=== PATIENT | female | born 1960 | race Caucasian/White ===

== ENCOUNTER 2025-03-20 02:25 | Day surgery (SDC) | payer OTHER, SELFPAY ==
[2025-03-13 14:43] VITALS: BMI 32.1
--- NOTE | 2025-03-13 14:51 | PC.NURSE ---
Report to the Outpatient Waiting Room, entrance under the green pavilion located off [facility], at time 1130_ on date _03/20/25_. Planned Procedure Time: __1330_.? Time changes happen often and if your time is changed the preop area will call you the afternoon before. - You and your visitor will be asked to self-screen and do not enter if you have any COVID symptoms. Please call surgeon if you need to reschedule. - A mask is optional within the hospital at this time. Patients may have clear liquids (water, carbonated beverages, clear teas, apple juice) until 3 hours prior to surgery with a maximum of 20 ounces. - No food from midnight until time of surgery and no smoking, or chewing tobacco (or any form of nicotine). No chewing gum, candy or mints. - Infants may have breast milk until 4 hours before surgery, infant formula 6 hours prior to surgery. - Children will be allowed to drink immediately following surgery.? If applicable, please bring a bottle or sippy cup to assist with drinking. Juice, water, soda, and popsicles are readily available.? For infants on formula, please bring formula the day of surgery.? Pacifiers are allowed. Take only the following medications with a SIP of water on the morning of surgery: ____LEVOTHYROXINE DO NOT STOP ANY OF YOUR OTHER PRESCRIPTION MEDICATIONS PRIOR TO SURGERY EXCEPT THE FOLLOWING Hold all vitamins and supplements for 3 days per anesthesiologist. Medications to discontinue per physician Date to take last dose Please no make-up, nail kyrgyz, hairspray, perfume, deodorant, or body powder the day of surgery.? No jewelry (including any body piercings) or valuables the day of surgery, leave them at home.? Please take a shower or bath the night before, or the morning of, surgery with an antibacterial soap.? Wear comfortable, loose fitting clothing.? Children are encouraged to wear pajamas. - Jewelry must be removed prior to entering the operating room.? Rings and piercings that are not removed may be cut off. - The hospital will not accept responsibility for valuables.? - Please leave all valuables, including medications, at home the day of surgery. If you are going home after surgery, a licensed sales route driver helper must drive you home.? - NO public transportation without another adult if you receive anesthesia. - We recommend that an adult stay with you for 24 hours following discharge. - We also recommend that you do not drive, make important decision, drink alcoholic beverages, or take any drugs that were not prescribed by your health care provider for at least 24 hours after your discharge time. For Pediatric surgeries, we recommend two adults accompany the child home. Follow any additional instructions given to you from your surgeon. Telephone instructions given to _PATIENT_and asked if any additional questions and then verbalized understanding. Patient advised to call surgeon office or pre surgery nurse liaison [phone] if any additional questions.
[2025-03-20] VITALS (8 sets, daily range): BP systolic 137–160; BP diastolic 62–70; PULSE 65–80; RESP 11–16; TEMP 36.6–36.8; O2SAT 93–100; BMI 31.7
--- OUTSIDE RECORDS SUMMARY | 2025-03-20 02:27 | XMS_ITS | Clinical Summary ---
Author Organization [facility] at the Medical Office Building Address [address] [place] [phone] Care Team Providers Care Chipper Name Role Phone Saba Chiu MD Primary Care Provider Allergies Active Allergy Reactions Criticality Noted Date Comments Penicillins Unknown 05/15/2013 Medications cetirizine (ZyrTEC) 10 mg tablet Take 1 tablet (10 mg total) by mouth daily Active multivitamin capsule Take 1 capsule by mouth daily Active levothyroxine (SYNTHROID) 125 mcg tabletIndications: Acquired hypothyroidism Take 1 tablet (125 mcg total) by mouth daily 90 tablet 4 08/02/20 24 Active nystatin cream Apply topically 2 (two) times a day 30 g 11 12/01/19 25 026 Active apixaban (ELIQUIS) 2.5 mg tablet Take 1 tablet (2.5 mg total) by mouth 2 (two) times a day 14 tablet 01/18/20 25 Active atorvastatin (LIPITOR) 20 mg tablet TAKE 1 TABLET BY MOUTH EVERY DAY 90 tablet 2 01/25/20 25 Active valACYclovir (VALTREX) 500 mg tablet Take 1 tablet (500 mg total) by mouth daily 90 tablet 3 02/23/20 25 Active valACYclovir (VALTREX) 500 mg tablet Take 1 tablet (500 mg total) by mouth daily 90 tablet 3 06/30/20 22 025 Discontin ued(Reord er) Active Problems Problem Noted Date Diagnosed Date KENDRA (obstructive sleep apnea) 09/18/2024 BMI 32.0-32.9,adult 09/18/2024 Snoring 09/18/2024 Overview (09/18/2024): Referral for sleep med Psychophysiological insomnia 09/18/2024 Family history of sleep apnea 09/18/2024 Nonsmoker 09/18/2024 Shortness of breath 09/18/2024 Class 1 obesity due to exces s calories with serious comorbidity and body mass index (BMI) of 32.0 to 32.9 in adult 07/02/2022 Assessment & Plan (07/02/2022 9:50 AM CDT): Try to cut back on calories. Most people should eat between 6534-4515 calories to lose weight. Decrease your carbohydrate intake to less than 130 grams per day if possible and increase protein to help with hunger. Increase activity to 30 min 4-5 days a week and add strength training 2 times weekly. Avoid fried fatty foods, butter, red meats, full fat dairy products, and sugary baked goods. Focus diet on lean protein, skinless chicken, seafood, nuts, dried beans, whole grains and non-starchy veggies. Reduce sodium intake, ideally 2000 mg or less per day. History of pulmonary embolism 12/24/2020 Recurrent herpes simplex 05/04/2018 Allergic rhinitis 05/15/2013 Hyperlipidemia 05/15/2013 Hypothyroidism 04/14/2013 Resolved Problems Problem Noted Date Diagnosed Date Resolved Date Special screening for malign ant neoplasms, colon 06/27/2021 07/02/2022 Overview (06/27/2021): Added automatically from request for surgery [id number] Encounters Date Type Department Care Team Description 01/17/2025 Telephone [facility] Primary Care [address] [place] [address] [place] [phone] Saba Chiu MD 01/09/2025 2:15 PM CDT Office Visit [facility] Pulmonology [address] [facility] [address] [place] [phone] Guevara Jensen MD KENDRA (obstructive sleep apnea) (Primary Dx); Psychophysiological insomnia; Family history of sleep apnea; Nonsmoker; Shortness of breath; BMI 32.0-32.9,adult from Last 3 Months Immunizations Immunization Administration Dates Next Due Influenza, Quadrivalent, Spl it, Preservative Free, Intramuscular 07/14/2017 Influenza, Unspecified 09/12/2024(Deferr ed: Patient Refused),07/12/2024(Deferred: Patient Refused),07/06/2022(Deferred: Patient Refused),07/06/2022(Deferred: Patient Refused),07/04/2021(Deferred: Patient Refused),07/15/2020,07/10/2019, 018 Pfizer SARS-CoV-2 Monovalent Vaccination (12+ Yrs) PURPLE 12/20/2020,11/28/2020 TD Preservative Free 03/07/1998 Tdap 03/13/2020 ZOSTER Recombinant 10/08/2021,05/13/2021 Surgical History Surgery Date Site/Laterality Comments ABLATION SECTION CORRECTION HAMMER TOE 10/04/2023 - 11/03/2023 Bilateral Medical History Medical History Date Comments Thyroid disease Hyperlipidemia Hx of colonoscopy Family History Medical History Relation Name Comments Drug abuse Brother Stroke Father Heart disease Mother Hypertension Mother Stroke Mother Stroke Sister 1 Stroke Sister 2 Stroke Sister 3 Stroke Sister 4 Relation Name Status Comments Brother Father Mother Sister 1 Alive Sister 2 Alive Sister 3 Alive Sister 4 Alive Social History Tobacco Use Types Packs/Day Years Used Date Smoking Tobacco: Never Tobacco Cessation:Counseling Given: Not Answered AUDIT-C Answer Date Recorded Q1: How often do you have a drink containing alc ohol? 2-4 times a month 12/15/2021 Q2: How many drinks containi ng alcohol do you have on a typical day when you are drinking? 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 Gender Identity Female 07/18/2021 10:59 AM CDT Sexual Orientation Not on file Obstetrics History Last Filed Vital Signs Vital Sign Reading Time Taken Comments Blood Pressure 142/80 01/09/2025 2:22 PM CDT Pulse 71 01/09/2025 2:22 PM CDT Temperature 36.6 C (97.8 F) 12/01/2024 10:20 AM IMPLANT POLISHER Respiratory Rate 18 01/09/2025 2:22 PM CDT Oxygen Saturation 97% 01/09/2025 2:22 PM CDT Inhaled Oxygen Concentration - - Weight 86.5 kg (190 lb 12.8 oz) 01/09/2025 2:22 PM CDT Height 162.6 cm (5' 4) 01/09/2025 2:22 PM CDT Body Mass Index 32.75 01/09/2025 2:22 PM CDT Plan of Treatment Health Maintenance Due Date Last Done Comments Fall Risk Assessment 1960 Hepatitis C Screening 1960 Osteoporosis Screening-Bone Density Scan 1960 Hepatitis B Screening 1978 Pneumococcal vaccine 65+ (1 of 1 - PCV) 2010 Covid-19 Vaccine (3 - 2023-2 5 season) 2024 12/20/2020, 11/28/2020 Breast Cancer Screening-Mammogram 03/17/2025 03/17/2024, 03/17/2024, 03/17/2024, Additional history exists Influenza Vaccine (Season Ended) 2025 07/15/2020, 07/10/2019, 07/20/2018, Additional history exists Well Visit 65+ 07/12/2025 07/12/2024, 11/2022, 06/30/2022, Additional history exists Depression Screening 12/01/2025 12/01/2024, 09/12/2024, 07/12/2024, Additional history exists Colon Cancer Screening-Colonoscopy 07/31/20262020, 09/19/2015 Cervical Cancer Screening 06/30/2027 06/30/2022, 11/2016 DTaP/Tdap/Td Vaccine (2 - Td or Tdap) 03/13/2030 03/13/2020, 03/07/1998 Zoster Vaccine Completed 10/08/2021, 05/13/2021 Procedures Procedure Name Priority Date/Time Associated Diagnosis Comments SCREENING MAMMOGRAM Schedule Routine, Read Routine (OP Routine) 03/17/2024 PAP AND HIGH RISK HPV, REFLEX TO GENOTYPING Routine 06/30/2022 11:37 AM CDT Cervical cancer screening HM COLONOSCOPY Routine 07/31/2021 from Last 3 Months or Most Recently Relevant to Health Maintenance Results * Screening Mammogram (03/17/2024) Anatomical Region Laterality Modality Breast N/A Mammography 03/17/2024 us Historical Provider MD BARROSO MAMMO PROCEDURES Frida l Result * Pap and High Risk HPV, reflex to Genotyping (06/30/2022 11:37 AM CDT) Thin prep (Pap test) 06/30/2022 11:37 AM CDT 07/01/2022 11:37 AM CDT Narrative PATHOLOGY [facility] - 07/06/2022 11:05 AM CDT [facility] Department of Pathology [address] [place] [address] Final Report with Addendum Note to Patients: This report may contain a detailed description of human tissue sent by a health care provider to the laboratory for pathologic evaluation. The content of this report is essential for diagnosis and may provide important critical findings. This information may be unfamiliar to patients to review without a medical professional present. It is advised that the patient review this report in the presence of a health care provider who can answer questions and explain the details. Patient Name: SHARMIN UNDERWOOD Address: [address] [place] [address] Gender: F : 1960 (Age: 62) Service: Laboratory Location: N : [id number] [facility] #: [id number] Patient Type: [facility] SPECIMEN Taken: 06/30/2022 Received: 07/01/2022 Accessioned:: 07/02/2022 Reported: 07/06/2022 Physician(s): Brie Buitrago [facility] Diagnosis: Source of Specimen: SCREENING THIN PREP IMAGED PAP w/ HPV Specimen Adequacy: - Specimen satisfactory for interpretation; indeterminate endocervical component due to marked atrophy General Category: - Negative for intraepithelial lesion or malignancy KRYSTLE Davila(ASCP) Report Electronically Reviewed and Signed Out By KIP DavilaASCP) 07/06/2022 11:05:24Addenda: HPV Test Interpretation NEGATIVE for types 16, 18, 31, 33, 35, 39, 45, 51, 52, 56, 58, 59, 66 and 68. Test performed utilizing Gen-Probe Aptima assay. KRYSTLE Davila(ASCP)Report Electronically Reviewed and Signed Out By KIP DavilaASCP) 07/03/2022 17:43:00 Specimen(s) Received: A: SCREENING THIN PREP IMAGED PAP w/ HPV Clinical History: Last Menstrual Period: unknown The Pap test is a screening test used to aid in the detection of cervical cancer and its precursors. It should not be the sole means by which malignant and premalignant lesions are diagnosed. Both false negative and false positive results may occur. It also has poor sensitivity for the detection of endometrial lesions and should not be used to evaluate suspected endometrial abnormalities. For these reasons it is most important to obtain Pap tests at regular intervals. The performance characteristics of some immunohistochemical stains, fluorescence in-situ hybridization tests and immunophenotyping by flow cytometry cited in this report (if any) were determined by the Surgical Pathology Department at [facility] as part of an ongoing quality control inspector heading program and in compliance with federally mandated regulations drawn from the Clinical Laboratory Improvement Act of 1988 (CLIA '88). Some of these tests rely on the use of analyte specific reagents and are subject to specific labeling requirements by the US Food and Drug Administration. Such diagnostic tests may only be performed in a facility that is certified by the Department of Health and Human Services as a high complexity laboratory under CLIA '88. The FDA has determined that such clearance or approval is not necessary. This test is used for clinical purposes. It should not be regarded as investigational or for research. Nevertheless, federal rules concerning the medical use of analyte specific reagents require that the following disclaimer be attached to the report: This test was developed and its performance characteristics determined by the Surgical Pathology Department [facility]. It has not been cleared or approved by the U. S. Food and Drug Administration. Brie Buitrago INSTRUMENTATION INSTRUCTOR LAB CYTOLOGY ORDERABLES Fi nal Result PATHOLOGY [facility] * COLONOSCOPY (07/31/2021) Scribed Colonoscopy Comment:results scanned to c hilton Lamar Duque MD HEALTH MAINTENANCE Final Result from Last 3 Months or Most Recently Relevant to Health Maintenance Insurance [employer] OOS [facility] CHOICE PLUS Care Teams Chipper Relationship Specialty Start Date End Date Saba Chiu MD PCP - General Internal Medicine 07/23/20
--- OUTSIDE RECORDS SUMMARY | 2025-03-20 02:27 | XMS_ITS | Referral Summary ---
Author Organization [facility] at the Medical Office Building Address [address] [place] [phone] Care Team Providers Care Lubrication Servicer Name Role Phone Saba Chiu MD Primary Care Provider Encounters Date Type Department Care Team Description 01/17/2025 Telephone [facility] Medical [facility] Primary Care [address] [place] [phone] Saba Chiu MD 01/09/2025 2:15 PM CDT Office Visit [facility] Pulmonology [address] [place] [phone] Guevara Jensen MD KENDRA (obstructive sleep apnea) (Primary Dx); Psychophysiological insomnia; Family history of sleep apnea; Nonsmoker; Shortness of breath; BMI 32.0-32.9,adult from Last 3 Months Allergies Active Allergy Reactions Criticality Noted Date [...] on calories. Most people should eat between 5638-9811 calories to lose weight. Decrease your carbohydrate [...] (06/27/2021): Added automatically from request for surgery [id number] Immunizations Immunization Administration Dates Next Due Influenza, Quadrivalent, Spl it, Preservative Free, Intramuscular 07/14/2017 Influenza, Unspecified 09/12/2024(Deferr ed: Patient Refused),07/12/2024(Deferred: Patient Refused),07/06/2022(Deferred: Patient Refused),07/06/2022(Deferred: Patient Refused),07/04/2021(Deferred: Patient Refused),07/15/2020,07/10/2019, 018 Pfizer SARS-CoV-2 Monovalent Vaccination (12+ Yrs) PURPLE 12/20/2020,11/28/2020 TD Preservative Free 03/07/1998 Tdap 03/13/2020 ZOSTER Recombinant 10/08/2021,05/13/2021 Social History Tobacco Use Types Packs/Day Years [...] on file 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 Gender Identity Female 07/18/2021 10:59 AM CDT Sexual Orientation Not on file Last Filed Vital Signs Vital Sign Reading Time Taken Comments Blood Pressure 142/80 01/09/2025 2:22 PM CDT Pulse 71 01/09/2025 2:22 PM CDT Temperature 36.6 C (97.8 F) 12/01/2024 10:20 AM GLOBAL RECRUITER Respiratory Rate 18 01/09/2025 2:22 PM CDT Oxygen Saturation 97% 01/09/2025 2:22 PM CDT Inhaled Oxygen Concentration - - Weight 86.5 kg (190 lb 12.8 oz) 01/09/2025 2:22 PM CDT Height 162.6 cm (5' 4) 01/09/2025 2:22 PM CDT Body Mass Index 32.75 01/09/2025 2:22 PM CDT Plan of Treatment Not on file Procedures Procedure Name Priority Date/Time Associated Diagnosis Comments SCREENING MAMMOGRAM Schedule Routine, Read Routine (OP Routine) 03/17/2024 PAP AND HIGH RISK HPV, REFLEX TO GENOTYPING Routine 06/30/2022 11:37 AM CDT Cervical cancer screening HM COLONOSCOPY Routine 07/31/2021 from Last 3 Months or Most Recently Relevant to Health Maintenance Results * Screening Mammogram (03/17/2024) Anatomical Region Laterality Modality Breast N/A Mammography 03/17/2024 Historical Provider MD BARROSO MAMMO PROCEDURES Frida l Result * Pap and High Risk HPV, reflex to Genotyping (06/30/2022 11:37 AM CDT) Thin prep (Pap test) 06/30/2022 11:37 AM CDT 07/01/2022 11:37 AM CDT Narrative PATHOLOGY [facility] - 07/06/2022 11:05 AM CDT [facility] Department of Pathology [address] [place] [address] Final Report with Addendum Note to Patients: [...] the details. Patient Name: SHARMIN UNDERWOOD Address: [address] [place] [address] Gender: F : 1960 (Age: 62) Service: Laboratory Location: [facility] #: [id number] Patient Type: [facility] SPECIMEN Taken: 06/30/2022 Received: 07/01/2022 Accessioned:: 07/02/2022 Reported: 07/06/2022 Physician(s): Brie Buitrago, [facility] Diagnosis: Source of Specimen: SCREENING THIN PREP IMAGED PAP w/ HPV Specimen Adequacy: - Specimen satisfactory for interpretation; indeterminate endocervical component due to marked atrophy General Category: - Negative for intraepithelial lesion or malignancy KRYSTLE Davila(ASCP) Report Electronically Reviewed and Signed Out By KIP DavilaASC) 07/06/2022 11:05:24Addenda: HPV Test Interpretation NEGATIVE for types 16, 18, 31, 33, 35, 39, 45, 51, 52, 56, 58, 59, 66 and 68. Test performed utilizing Gen-Probe Aptima assay. KIP DavilaASC)Report Electronically Reviewed and Signed Out By KIP DavilaASC) 07/03/2022 17:43:00 Specimen(s) Received: A: SCREENING THIN [...] determined by the Surgical Pathology Department at [facility] as part of an ongoing quality assurance clerk program and in compliance with federally mandated [...] characteristics determined by the Surgical Pathology Department [facility]. It has not been cleared or approved by the U. S. Food and Drug Administration. Brie Buitrago NP LAB CYTOLOGY ORDERABLES Fi nal Result PATHOLOGY [facility] * COLONOSCOPY (07/31/2021) Scribed Colonoscopy Comment:results scanned to sonia Urrutia Lamar Duque MD HEALTH MAINTENANCE Final Result from Last 3 Months or Most Recently Relevant to Health Maintenance Insurance [employer] O[employer] ACCESS [facility] CHOICE PLUS [facility] HMO/PPO Address: [address] [address] [place] [address] Care Teams Lubrication Servicer Relationship Specialty Start Date End Date Saba Chiu MD PCP - General Internal Medicine 07/23/20
--- OUTSIDE RECORDS SUMMARY | 2025-03-20 02:27 | XMS_ITS | Clinical Summary ---
Author Organization [facility] Address [facility] [place] [address] Care Team Providers Care And Taxi Instructor Bus Trolley Name Role Phone Anup Chiu MD Primary Care Provider [phone] Allergies Active Allergy Reactions Criticality Noted Date Comments Meloxicam Unknown 05/15/2013 Neomycin-Bacitracin Zn-Polymyx Unknown 05/15 Penicillins Unknown 05/15/2013 Trazodone Unknown 05/15/2013 Medications Levocetirizine Dihydrochloride (XYZAL ALLERGY 24HR) 5 MG Tab Take 1 tablet (5 mg total) by mouth daily. 02/03/20 18 Active fluticasone propionate 50 MCG/ACT nasal spray 2 sprays by Each Nostril route as needed. 12/15/19 20 Active atorvastatin 20 MG tabletIndications:H yperlipidemia, unspecified hyperlipidemia type Take 1 tablet (20 mg total) by mouth daily. 90 tablet 3 03/13/20 20 Active Additional Information Patient taking differently:20 mg OralNightly at bedtime, Reported on 09/29/2023 levothyroxine 88 MCG tabletIndications:A cquired hypothyroidism Take 1 tablet (88 mcg total) by mouth daily. 90 tablet 3 03/13/20 20 Active Multiple Vitamin (MULTIVITAMIN) capsule Take 1 capsule by mouth daily. Active HYDROcodone-acetami nophen (NORCO) 5-325 MG tabletIndications:A cute Pain < 7 Day Supply Take 1 tablet by mouth every 6 (six) hours as needed for Pain. Indications: Acute Pain < 7 Day Supply 20 tablet 10/12/19 24 Active Active Problems Problem Noted Date Diagnosed Date Recurrent herpes simplex 05/04/2018 Allergic rhinitis 05/15/2013 Hyperlipidemia 05/15/2013 Hypothyroidism 04/14/2013 Resolved Problems Problem Noted Date Diagnosed Date Resolved Date Encounter for preventive health examination 04/14/2013 06/14/2020 Immunizations Immunization Administration Dates Next Due Influenza (Generic) 07/20/2018 Td (Tenivac) preservative free 03/07/1998 Tdap (Historical Only-select from magnify glass) 03/13/2020 Family History Medical History Relation Comments Alcohol Abuse Brother cirrhosis Brother acute myocardial infarction Father dece ased cva Father acute myocardial infarction Mother dece ased cva Mother Parkinson's Disease Sister cva Sister Relation Status Comments Brother Father Mother Sister Social History Tobacco Use Types Packs/Day Years Used Date Smoking Tobacco: Never Smokeless Tobacco: Never Tobacco Cessation:Counseling Given: Not Answered Alcohol Use Standard Drinks/Week Comments Yes 0 (1 standard drink = 0.6 oz pur e alcohol) socially Social Connection and Isolation Panel [NHANES] A nswer Date Recorded Frequency of Communication with Friends and Fami ly Not on file 02/14/2019 Frequency of Social Gatherings with Friends and Family Not on file 02/14/2019 Attends Voodoo Services Not on file 02/14 Active Member of Clubs or Organizations Not on f ile 02/14/2019 Attends Club or Organization Meetings Not on emory e 02/14/2019 Marital Status 02/14/2019 AUDIT-C Answer Date Recorded Frequency of Alcohol Consumption 2-4 times a mon th 02/20/2019 Average Number of Drinks Not on file 019 Frequency of Binge Drinking Not on file 02/02 PHQ-2 Answer Date Recorded PHQ-2 Score - If the patient scores above 3, please move on to questions 3-9 0 03/13/2020 Comments No Sex and Gender Information Value Date Recorded Sex Assigned at Not on file Legal Sex Female 6:38 PM CDT Gender Identity Not on file Sexual Orientation Not on file 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 on file Not on file Not on file Last Filed Vital Signs Vital Sign Reading Time Taken Comments Blood Pressure 162/86 10/12/2023 9:44 AM HARDWARE DESIGN ENGINEER Pulse 66 10/12/2023 9:44 AM HARDWARE DESIGN ENGINEER Temperature 36.7 C (98 F) 10/12/2023 9:44 AM HARDWARE DESIGN ENGINEER Respiratory Rate 16 10/12/2023 9:44 AM HARDWARE DESIGN ENGINEER Oxygen Saturation 98% 10/12/2023 9:44 AM HARDWARE DESIGN ENGINEER Inhaled Oxygen Concentration - - Weight 86.4 kg (190 lb 7.6 oz) 10/12/2023 6:11 A M HARDWARE DESIGN ENGINEER Height 165.1 cm (5' 5) 10/12/2023 6:11 AM HARDWARE DESIGN ENGINEER Body Mass Index 31.7 10/12/2023 6:11 AM HARDWARE DESIGN ENGINEER Plan of Treatment Health Maintenance Due Date Last Done Comments Hepatitis C 1978 Pneumococcal Vaccine: 50+ Years (1 of 1 - PCV) 2010 COVID-19 Vaccine ( - season) 2024 12/20/2020, 11/28/2020 Dexa Scan (General) 2025 Colorectal Cancer Screening Colonoscopy (10 Years) 09/19/2025 09/19/2015 Mammogram Screening 03/17/2026 03/17/2024, 09/17/2022, 01/23/2022, Additional history exists DTaP, Tdap and Td Vaccines (2 - Td or Tdap) 03/13/2030 03/13/2020, 03/07/1998 RSV Immunization or 60+ Years (1 - 1-dose 75+ series) 2035 Zoster Vaccines Completed 10/08/2021, 05/13/2021 Meningococcal B Vaccine Aged Out No l onger eligible based on patient's age to complete this topic Meningococcal Vaccine Aged Out No trinidad fredi eligible based on patient's age to complete this topic RSV Immunizations Under 20 Months Aged Out No longer eligible based on patient's age to complete this topic Procedures Procedure Name Priority Date/Time Associated Diagnosis Comments MG SCREENING W NORMA MICHELE DIGI Routine 03/17/2024 7:29 AM CDT Encounter for screening mammogram for malignant neoplasm of breast COLONOSCOPY Routine 09/19/2015 12:00 AM HARDWARE DESIGN ENGINEER from Last 3 Months or Most Recently Relevant to Health Maintenance Results * MG SCREENING W NORMA MICHELE DIGI (03/17/2024 7:29 AM CDT) Anatomical Region Laterality Modality Breast Bilateral Mammography 03/17/2024 9:20 AM CDT Impressions 03/17/2024 10:22 AM CDT IMPRESSION: No significant interval change. No mammographic evidence of malignancy. RECOMMENDATION: Routine ScreeningBilateral OVERALL IMAGING ASSESSMENT: ACR BI-RADS 2 - BENIGN FINDING(S). Ordered By: ANUP CHIU Interpreted By: James Da Silva, 03/17/2024 9:20 AM Narrative 03/17/2024 10:22 AM CDT EXAMINATION: MG SCREENING W NORMA MICHELE DIGI INDICATIONS: Screening TECHNIQUE: Digital full field CC and MLO screening mammography bilaterally to include 3-D Tomosynthesis technique. This study was read with the assistance of a computer-aided detection system. HISTORY: No reported breast complaint. No documented personal or first degree family history of breast cancer. No documented prior breast procedure. COMPARISON: Multiple prior examinations available for comparison dating back to 01/18/2002, the most recent of 09/17/2022, 01/23/2022, 07/18/2021, 07/04/2021, and 07/14/2018 TISSUE DENSITY: There are scattered areas of fibroglandular density. FINDINGS: Scattered typically benign round and rim calcifications bilaterally. Scattered similar-appearing circumscribed round ovoid waxing and waning benign low-density masses bilaterally. No suspicious microcalcification or mass. No developing asymmetry or architectural distortion. No axillary adenopathy. us Anup Chiu MD MAMMO Final Resu lt * Colonoscopy (09/19/2015 12:00 AM HARDWARE DESIGN ENGINEER) 09/19/2015 09/19/2015 Narrative TOUCHWORKS TO EPIC CONVERSION - 09/19/2015 12:00 AM HARDWARE DESIGN ENGINEER Documented hx of procedure Procedure Note Milly Yao MD - 12/22/2018 Documented hx of procedure us Milly Sorensen Md, MD GI PROCEDURE ORDERABLES Final Result TOUCHWORKS TO EPIC CONVERSION from Last 3 Months or Most Recently Relevant to Health Maintenance [place] [address] [place] [address] Advance Directives * Full Code (Latest Code Status on File) Date Activated Date Inactivated Comments 10/12/2023 9:05 AM 10/12/2023 11:54 AM Care Teams And Taxi Instructor Bus Trolley Relationship Specialty Start Date End Date Anup Chiu MD [address] [place] [id number] PCP - General 10/08/23
--- NOTE | 2025-03-20 11:47 | ECG_ITS ---
Test Date: 2025-03-20 12:18:19 Measurements Intervals [place] Rate: 59 P: 33 ME: 222 QRS: 8 QRSD: 81 T: 29 QT: 408 QTc: 407 Interpretive Statements SINUS BRADYCARDIA WITH FIRST DEGREE AV BLOCK DELAYED PRECORDIAL R/S TRANSITION LOW QRS VOLTAGE IN PRECORDIAL LEADS BORDERLINE ECG No previous ECG available for comparison Electronically Signed On 03-20-2025 12:46:36 CDT by Darian Tam D.O.
[2025-03-20 12:03] LABS: Urine Cotinine NEGATIVE
[2025-03-20] MEDS: LACTATED RINGERS 1,000 ML 30 ML IV CONT (12:30)
--- NOTE | 2025-03-20 13:13 | WPDANESEPPF ---
Anes - Initial Pre Proc Eval Procedure: Operation Date: 03/20/25 13:30 Proposed Procedures p Bilateral Breast Reduction - Salomon Miller MD Date/Time: 03/20/25 13:13 Surgeon: Salomon Miller MD Pre Op Diagnosis: macromastia Patient Data Age: 65 Gender: F Height: 1.63 m Weight: 83.8 kg Allergies Allergy/AdvReac Type Severity Reaction Status Date / Time Penicillins Allergy Unknown unknown Verified 03/20/25 12:29 Home Medications ?Medication ?Instructions ?Recorded ?Confirmed ?Type atorvastatin 20 mg tablet 20 mg PO DAILY 01/27/21 03/13/25 History cetirizine 10 mg tablet (Zyrtec) 10 mg PO DAILY 03/13/25 03/13/25 History levothyroxine 125 mcg tablet 125 mcg PO DAILY 03/13/25 03/13/25 History multivitamin (Daily Multi-Vitamin 1 tablet PO DAILY 03/13/25 03/13/25 History tablet) Laboratory Tests 03/20/25 11:44 Cotinine Negative Patient hx anesthesia problems: none Family hx anesthesia problems: none Results Review: All pre-operative results and documents have been reviewed as part of the pre-operative evaluation. FOR[facility]LY [facility], [facility] Past Medical History Medical History History of History of blood clots High cholesterol Hypothyroid Surgical History Surgical History History of endometrial ablation History of Family History Family History Father Cerebrovascular accident Mother Cerebrovascular accident Sibling Cerebrovascular accident Social History Social History Smoking status: Never smoker Alcohol intake: current Alcohol use details: 3 PER MONTH Substance use: never Living arrangements: with family Anes - Eval Final PreProcedure Day of Procedure 03/20/25 13:13 Patient weight: obese Heart: regular rate and rhythm Lungs: clear to auscultation Airway: Mallampati scale class II Neurological: alert and oriented Last oral intake: >/= 8 hours ASA classification: III Emergent: no Anesthetic plan: proceed Anesthesia type and monitoring: general LMA and standard monitoring Results Review: All pre-operative results and documents have been reviewed as part of the pre-operative evaluation. Informed Consent: The patient's anesthetic plan and its attendant risks and benefits were discussed with the patient/family/POA. Questions were solicited and answers provided to the satisfaction of the patient/family/POA.
--- NOTE | 2025-03-20 13:46 | WPDHPUPDATE1 ---
History and Physical Update Update Date/Time: 03/20/25 13:46 History and Physical has been reviewed, including an updated exam of the patient. There are NO changes in the patient's condition. Risks, benefits, and alternatives have been discussed and questions answered. Patient agrees to proceed with procedure.
--- NOTE | 2025-03-20 14:05 | P.OP_ITS ---
Procedure Note - Detailed Date of Procedure 03/20/25 Pre-op Diagnosis macromastia Post-op Diagnosis Same Procedure Performed Bilateral reduction mammaplasty Surgeon Salomon Miller MD Anesthesia General Findings Inverted T Superior medial pedicel Lipoaspirate: 300cc Tissue removed: Right - 600 grams Left - 685 grams Description of Procedure She is here today for bilateral breast reduction. Previously and again today the risks, benefits, alternatives were discussed in extensive detail. I wanted her to be very realistic about the risks involved as well as expectations. We discussed aftercare and what to monitor for. She understands we can never guar antee final breast size and there will always be asymmetry. I was very upfront and honest about the risks of sensation change and even nipple loss (). Made sure answered all of her questions to her satisfaction today and consent was obtained. She was marked in the preoperative holding area with their verification. The patient was taken to the operating room placed supine on the operating table. Anesthesia was provided by anesthesiology. She was prepped and draped in a standard sterile fashion. A surgical time-out was taken. Stab incisions were made and I tumesced with a tumescent solution. Suction lipectomy of lateral breast / chest wall was completed with a 4mm jose luis cannula. This was based on preoperative planning, intraoperative observation, and a rolling pinch test which was in full agreement. I marked out the nipple-areolar complex at 42 mm. I then de-epithelialized the pedicle. The pedicle was well left well more than 2 cm in thickness. I then removed the inferior portion of the breast as well as the central keel to get shape based on preoperative planning. At this point copiously irrigated with saline solution and verified a strict hemostasis. I reapproximated the pillars using a 2-0 PDS. I tailor tacked the breast into place with lisa. She was placed in a sitting position. I verified the nipple-areolar complex position based on preoperative markings, intraoperative measurements, and observation which were in full agreement. This nipple-areolar complex was marked at 42 mm in size. I then placed supine and de-epithelialized this. Nipple-areolar complex was inset with 3-0 Monocryl. I closed IMF deep with 2-0 PDS. I closed the vertical incision with 3-0 Monocryl in the IMF with 3-0 stratafix. Then everything was closed using a running subcuticular 4-0 Monocryl and tissue glue. A dressing was placed followed by surgical bra. Patient was awoke and taken to PACU without difficulty. All instrument sponge counts were correct at the end of the case. Estimated Blood Loss 50 Drains No Packing No Pathology Yes (Bilateral breast tissue) Complications No immediate complications Condition Stable Disposition PACU
[2025-03-20] MEDS: TRANEXAMIC ACID 1,000MG/ISO100 1,000 MG/100 ML BAG 200 MG IVPB (14:15)
[2025-03-20] MEDS: LACTATED RINGERS IRRIG 1,000 ML, LIDOCAINE 1% LOCAL INJ 50 ML, EPINEPHrine HCL INJ 1 MG... INFILTRATE (14:19)
[2025-03-20] MEDS: ceFAZolin 2 GM/D5W 50 ML 2 GM/50 ML BAG IVPB (14:19)
--- NOTE | 2025-03-20 15:18 | S_PTH ---
PATIENT: Sharmin Flores LOC: [facility] U#:[id number] AGE/SX: 65/F ROOM: RE03/20/[address]: Salomon Miller MD : 1960 BED: DIS: 03/20/2025 SPEC #: [id number] RECD: 03/21/25 07:43 STATUS: GENARO REQ #: [id number] ALIREZA: 03/20/25 15:[address]: Salomon Miller DEPT: [facility] Surgical RECD BY: Stephanie Morillo ENTERED: 03/21/25 07:43 SP TYPE: Surgical OTHR DR: Saba ChiuMD Tissues: A - Breast Reduction B - Breast Reduction Procedures: Hematoxylin and Eosin Stain Gross and Microscopic Level 4
[2025-03-20] MEDS: oxyCODONE HCL (*CRX) 5 MG TAB IR PO (18:09)
== END 2025-03-20 18:34 | disposition home or self-care (01) ==
PROVIDERS: PCP Internal Medicine; Visit Provider Surgery Plastic and Reconstructive Surgery
PROC: 0HBV0ZZ Excision of Bilateral Breast, Open Approach (ICD-10-PCS; CPT 19318; principal; 2025-03-20 13:30)
DX: Z41.1 Encounter for cosmetic surgery (principal); N62 Hypertrophy of breast
CPT/HCPCS: 19318; 80307; 88305; 93005; A9270; J0171; J0690; J1100; J1171; J2003; J2250; J2405; J2704; J3010; J7120